=== PATIENT | female | born 2000 | race Caucasian/White ===

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

== ENCOUNTER → 2021-02-19 | Outpatient (REF) | payer OTHER ==
[2021-02-19 19:20] LABS: GC DNA AMPLIFICATION NEGATIVE (NEGATIVE)
== END ==
LOC: M LAB REF 17:15
PROVIDERS: ATTEND Nurse Practitioner Pediatrics
DX: Z00.00 Encounter for general adult medical examination without abnormal findings (principal)

== ENCOUNTER → 2021-07-07 | Outpatient (REF) | payer OTHER ==
[2021-07-07 19:24] LABS: GC DNA AMPLIFICATION NEGATIVE (NEGATIVE)
== END ==
LOC: M LAB REF 16:40
PROVIDERS: ATTEND Nurse Practitioner Pediatrics
DX: N94.6 Dysmenorrhea, unspecified (principal)

== ENCOUNTER → 2023-05-30 | Outpatient (REF) | payer OTHER | LOC: M LAB REF 16:53 | PROVIDERS: ATTEND Physician Assistant | DX: R35.0 Frequency of micturition (principal) ==

== ENCOUNTER → 2024-01-02 | Outpatient (REF) | payer OTHER | LOC: M LAB REF 17:12 | PROVIDERS: ATTEND Family Medicine | DX: J02.9 Acute pharyngitis, unspecified (principal) ==

== ENCOUNTER → 2024-12-02 | Outpatient (CLI) | payer OTHER | LOC: M RAD 09:52 | PROVIDERS: ATTEND Family Medicine | DX: N94.6 Dysmenorrhea, unspecified (principal) ==